=== PATIENT | male | born 1965 | race Caucasian/White ===

== ENCOUNTER 2018-02-22 13:34 | Emergency (ER) | payer OTHER ==
[2018-02-22 15:47] VITALS: BP 108/75
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
== END 2018-02-22 19:48 | disposition home or self-care (01) ==
LOC: JD.ED 13:34
DX: M86.652 Other chronic osteomyelitis, left thigh (principal); M25.562 Pain in left knee
CPT/HCPCS: 99283

== ENCOUNTER 2023-09-13 14:07 | Emergency (ER) | payer SELFPAY ==
[2023-09-13 14:30] VITALS: PULSE 98
[2023-09-13 20:11] VITALS: BP 148/88
== END 2023-09-13 15:45 | disposition home or self-care (01) ==
LOC: JD.ED 14:07
DX: S30.0XXA Contusion of lower back and pelvis, initial encounter (principal); S00.12XA Contusion of left eyelid and periocular area, initial encounter; Z86.19 Personal history of other infectious and parasitic diseases; Y04.8XXA Assault by other bodily force, initial encounter
CPT/HCPCS: 70486; 70486-26; 74176; 74176-26; 99284